=== PATIENT | male | born 1975 | race Caucasian/White ===

== ENCOUNTER → 2023-10-08 06:19 | Day surgery (SDC) | payer BC, SELFPAY | LOC: GI 06:19 | PROVIDERS: ATTENDING PHYSICIAN Internal Medicine Gastroenterology | DX: Z12.11 Encounter for screening for malignant neoplasm of colon (principal); D49.0 Neoplasm of unspecified behavior of digestive system; D12.5 Benign neoplasm of sigmoid colon; K57.30 Diverticulosis of large intestine without perforation or abscess without bleeding; K64.8 Other hemorrhoids; K62.89 Other specified diseases of anus and rectum | CPT/HCPCS: 45385; 45380; 88305 ==

== ENCOUNTER 2023-11-11 06:35 | Day surgery (SDC) | payer BC, SELFPAY ==
[2023-11-11 13:23] VITALS: BMI 31.4
[2023-11-11 13:25] VITALS: BMI 31.4
[2023-11-11 13:36] VITALS: BP 129/85
[2023-11-11 16:12] VITALS: BP 116/74
[2023-11-11 16:15] VITALS: BP 125/76
[2023-11-11 16:30] VITALS: BP 118/82
== END 2023-11-11 16:45 | disposition home or self-care (01) ==
LOC: SDS 06:35
PROVIDERS: ATTENDING PHYSICIAN Internal Medicine Gastroenterology
DX: C18.7 Malignant neoplasm of sigmoid colon (principal); K64.8 Other hemorrhoids
CPT/HCPCS: 45331; 45335; 88305; 88342

== ENCOUNTER 2023-11-27 06:17 | Day surgery (SDC) | payer BC, SELFPAY ==
[2023-11-27 11:33] VITALS: BMI 31.5
[2023-11-27 11:34] VITALS: BP 138/87
[2023-11-27 14:16] VITALS: BP 115/79
[2023-11-27 14:30] VITALS: BP 122/84
[2023-11-27 14:45] VITALS: BP 117/82
== END 2023-11-27 14:57 | disposition home or self-care (01) ==
LOC: SDS 06:17
PROVIDERS: ATTENDING PHYSICIAN Internal Medicine Gastroenterology
DX: C18.7 Malignant neoplasm of sigmoid colon (principal); D12.5 Benign neoplasm of sigmoid colon; K64.0 First degree hemorrhoids
CPT/HCPCS: 45349; 88305

== ENCOUNTER → 2023-11-28 13:42 | Outpatient (REF) | payer BC, SELFPAY | LOC: RAD 13:42 | PROVIDERS: ATTENDING PHYSICIAN Surgery; FAMILY PHYSICIAN Family Medicine | DX: C18.7 Malignant neoplasm of sigmoid colon (principal) | CPT/HCPCS: 71260; 74177; Q9967 ==

== ENCOUNTER → 2023-12-01 08:13 | Outpatient (REF) | payer BC, SELFPAY ==
[2023-12-01 10:26] LABS: ALT (SGPT) 24 U/L (0-50); AST (SGOT) 22 U/L (17-59); Albumin 4.8 g/dl (3.5-5.0); Alkaline Phosphatase 77 U/L (38-126); Blood Urea Nitrogen 17 mg/dl (9-20); Carbon Dioxide 27 mmol/L (22-30); Chloride 104 mmol/L (98-107); Glucose 88 mg/dl (70-99); Potassium 4.3 mmol/L (3.5-5.1); Sodium 140 mmol/L (135-145); Total Protein 7.5 g/dl (6.3-8.2); eGFR > 60.00
[2023-12-01 10:48] LABS: CEA 1.18 ng/ml
[2023-12-01 13:19] LABS: % Basophils 0.7 % (0-2); % Eosinophils 1.4 % (0-6); % Immature Granulocytes 0.5 % (0-0.5); % Neutrophils 68.4 % (42.2-75.2); Absolute Basophils 0.1 10^3/uL (0-0.2); Absolute Eosinophils 0.1 10^3/uL (0-0.7); Absolute Lymphocytes 1.8 10^3/uL (1.2-3.4); Absolute Monocytes 0.7 10^3/uL (0.1-0.6); Absolute Neutrophils 5.7 10^3/uL (1.4-6.5); Hematocrit 44.3 % (39.0-52.0); Hemoglobin 15.8 g/dL (13.0-18.0); Mean Corp Hgb Conc. 35.7 g/dL (33.0-37.0); Mean Corpuscular Hgb 32.6 pg (27.0-31.0); Mean Corpuscular Volume 91.3 fL (80.0-94.0); Mean Platelet Volume 10.5 fL (7.4-10.4); Nucleated Red Blood Cells % 0 % (-); Platelet Count 255 10^3/uL (130-400); Red Blood Cell Count 4.85 10^6/uL (4.70-6.10); Red Cell Dist. Width 12.1 % (11.5-14.5); White Blood Cell Count 8.4 10^3/uL (4.8-10.8)
== END ==
LOC: REG 08:13
PROVIDERS: ATTENDING PHYSICIAN Surgery; FAMILY PHYSICIAN Family Medicine
DX: C18.7 Malignant neoplasm of sigmoid colon (principal)
CPT/HCPCS: 36415; 80053; 82378; 85025

== ENCOUNTER 2023-12-04 06:09 | Inpatient (IN) | payer BC, SELFPAY ==
[2023-12-02 14:05] LABS: INR 1.14; PT 14.4 Sec (11.4-14.6)
[2023-12-02 14:06] LABS: APTT 30.1 Sec (23.4-35.0)
[2023-12-02 14:07] VITALS: BMI 32.0
[2023-12-04] VITALS (13 sets, daily range): BP systolic 10–135; BP diastolic 54–84; BMI 32.0
[2023-12-04] MEDS: NEURONTIN 600 MG PO (06:30)
[2023-12-04] MEDS: ENTEREG 12 MG PO (06:30)
[2023-12-04] MEDS: TYLENOL 1000 MG PO (06:30)
[2023-12-04] MEDS: HEPARIN 5000 UNITS SC (06:31)
[2023-12-04] MEDS: NORMOSOL-R 1000 IV ×2 (06:33→14:37)
--- NOTE | 2023-12-04 13:09 | W.IMMPOSTOP ---
Addendum entered and electronically signed by Orlando Villarreal MD 12/04/23 19:12:
Also of note: Tumor location was sigmoid.
Addendum entered and electronically signed by Orlando Villarreal MD 12/04/23 13:30:
Patient's updated in waiting room.
Original Note:
Surgical Immed Post Op Note
-
Primary Surgeon: Chaim Villarreal MD
Assisting Surgeon: DAI Garcia
Pre-op Diagnosis: sigmoid cancer
Post-op Diagnosis: same
Procedure Performed: 1) robotic low-anterior resection (LAR) 2) flexible sigmoidoscopy
Anesthesia Type: general plus local
Specimen / Cultures: 1) sigmoid colon 2) upper rectum 3) distal anastomotic donut
Estimated Blood Loss: 150 cc
Complications: no immediate
Operative Findings: 1) distal sigmoid EMR site noted as well as tattoos upstream and downstream 2) no obvious peritoneal or hepatic metastases
#19 Luis in pelvis.
Vera, stents, ureteral ICG by Dr Alicia.
Will send to med surg.
Colon Resection
Colon Resection
Operation performed with curative intent: Yes
Sigmoid Resection: Inferior Mesenteric
[2023-12-04 13:55] LABS: % Basophils 0.4 % (0-2); % Immature Granulocytes 0.3 % (0-0.5); % Lymphocytes 5.8 % (20.5-51.1); % Neutrophils 91.5 % (42.2-75.2); Absolute Basophils 0.1 10^3/uL (0-0.2); Absolute Lymphocytes 0.9 10^3/uL (1.2-3.4); Absolute Monocytes 0.3 10^3/uL (0.1-0.6); Absolute Neutrophils 13.5 10^3/uL (1.4-6.5); Hematocrit 40.8 % (39.0-52.0); Hemoglobin 15.1 g/dL (13.0-18.0); Mean Corpuscular Hgb 32.8 pg (27.0-31.0); Mean Corpuscular Volume 88.7 fL (80.0-94.0); Mean Platelet Volume 10.7 fL (7.4-10.4); Nucleated Red Blood Cells % 0 % (-); Platelet Count 273 10^3/uL (130-400); White Blood Cell Count 14.8 10^3/uL (4.8-10.8)
[2023-12-04] MEDS: TORADOL 15 MG IV ×2 (14:10→20:41)
[2023-12-04] MEDS: DILAUDID 0.5 MG IV (14:22)
[2023-12-04 15:37] LABS: ALT (SGPT) 36 U/L (0-50); AST (SGOT) 37 U/L (17-59); Alkaline Phosphatase 60 U/L (38-126); Blood Urea Nitrogen 14 mg/dl (9-20); Calcium 9.1 mg/dl (8.4-10.2); Carbon Dioxide 24 mmol/L (22-30); Estimated Creatinine Clearance > 125 ml/min; Glucose 137 mg/dl (70-99); Magnesium 2.1 mg/dl (1.6-2.3); Total Bilirubin 2.1 mg/dl (0.2-1.3); Total Protein 6.4 g/dl (6.3-8.2); eGFR > 60.00
[2023-12-04 16:00] LABS: Chloride 105 mmol/L (98-107); Potassium 4.2 mmol/L (3.5-5.1); Sodium 136 mmol/L (135-145)
[2023-12-04] MEDS: TYLENOL 650 MG PO (18:04)
[2023-12-04] MEDS: FLUSH (NSS) 2 FLUSH IV (20:44)
[2023-12-04] MEDS: TYLENOL PO (21:40)
[2023-12-05] MEDS: DILAUDID 0.5 MG IV ×5 (01:10→22:24)
[2023-12-05] MEDS: TYLENOL 650 MG PO ×6 (01:11→20:21)
[2023-12-05] MEDS: FLUSH (NSS) 2 FLUSH IV (01:11)
[2023-12-05] MEDS: NORMOSOL-R 1000 IV ×2 (01:17→15:06)
[2023-12-05] MEDS: TORADOL 15 MG IV ×4 (01:57→20:21)
[2023-12-05 02:59] VITALS: BP 116/68
[2023-12-05 06:46] LABS: % Basophils 0.3 % (0-2); % Immature Granulocytes 0.4 % (0-0.5); % Lymphocytes 12.8 % (20.5-51.1); % Monocytes 11.5 % (1.7-9.3); Absolute Lymphocytes 1.3 10^3/uL (1.2-3.4); Absolute Monocytes 1.2 10^3/uL (0.1-0.6); Absolute Neutrophils 7.9 10^3/uL (1.4-6.5); Hematocrit 35.4 % (39.0-52.0); Hemoglobin 12.8 g/dL (13.0-18.0); Mean Corp Hgb Conc. 36.2 g/dL (33.0-37.0); Mean Corpuscular Hgb 31.6 pg (27.0-31.0); Mean Corpuscular Volume 87.4 fL (80.0-94.0); Mean Platelet Volume 9.9 fL (7.4-10.4); Nucleated Red Blood Cells % 0 % (-); Platelet Count 247 10^3/uL (130-400); Red Blood Cell Count 4.05 10^6/uL (4.70-6.10); Red Cell Dist. Width 12.1 % (11.5-14.5); White Blood Cell Count 10.5 10^3/uL (4.8-10.8)
[2023-12-05 07:10] LABS: Blood Urea Nitrogen 14 mg/dl (9-20); Carbon Dioxide 26 mmol/L (22-30); Chloride 103 mmol/L (98-107); Estimated Creatinine Clearance > 125 ml/min; Glucose 96 mg/dl (70-99); Magnesium 2.1 mg/dl (1.6-2.3); Potassium 4.1 mmol/L (3.5-5.1); Sodium 135 mmol/L (135-145); eGFR > 60.00
[2023-12-05 07:26] VITALS: BP 117/76
[2023-12-05] MEDS: ENTEREG 12 MG PO ×2 (08:57→20:21)
[2023-12-05] MEDS: PROTONIX 40 MG PO (08:57)
--- NOTE | 2023-12-05 12:10 | CM ---
Initial assessment completed with patient who lives with his and 2 daughters (13-16 y/o) in a 2 story home plus basement with 1 step to enter and B/B on with 1/2 bath on . No DME or in-home services. [employer] was independent, drove and
worked. No history of Psychiatric hospitalizations. [facility]acy is [facility] in [place] and PCP is Dr. Mustapha Fox. Ureteral caths removed. Anticipate no needs at discharge. Patient in agreement.
--- NOTE | 2023-12-05 12:26 | W.PN.CRS1 ---
Today's Communication / Plan
-
clears
lovenox
d/c vidal
Assessment/Plan
-
POD#1 1) robotic low-anterior resection (LAR) 2) flexible sigmoidoscopy
-Vitals and labs normal.
-Advance diet to clears.
-Stent #2 removed at bedside. D/C vidal.
-OOB as tolerated.
-Lovenox for DVT prophylaxis. TEDS/SCDS in place.
-Continue ESTRADA drain until discharge.
-OR pathology pending
-Tylenol/Toradol for pain, Dilaudid PRN.
Subjective Data
Procedure
1) robotic low-anterior resection (LAR) 2) flexible sigmoidoscopy
Subjective Data
Date of Service: December 05, 2023
Patient states he is feeling well. He has no nausea or vomiting. His pain is controlled. His only complaint is the vidal.
Objective Data
-
Vital Signs
Temp Pulse Resp BP Pulse Ox
98.6 F 63 19 117/76 98
12/05/23 07:26 12/05/23 07:26 12/05/23 07:26 12/05/23 07:26 12/05/23 07:26
Intake & Output
12/04/23 12/05/23 12/06/23
06:59 06:59 06:59
Intake Total 1860 / 1860
Output Total 1200 / 1200
Balance 660 / 660
Intake:
Oral fluids 360 / 360
IV fluids (Total) 1500 / 1500
Normosal 300 / 300
Output:
Drain Output (Total) 120 / 120
Right Abdomen Zana-Farias 120 / 120
Urine, Vidal 1080 / 1080
Lab Results
12/05/23 05:39
12/05/23 05:39
Physical Exam
-
General: No Acute Distress and AOx3
Abdomen: Soft, Non Distended and Non Tender
Skin: Warm and Dry
Incision: Clear, Dry, Intact
[2023-12-05 15:32] VITALS: BP 121/75
[2023-12-05] MEDS: LOVENOX 40 MG SC (17:55)
[2023-12-05 23:00] VITALS: BP 126/75
[2023-12-06] MEDS: TYLENOL 650 MG PO ×6 (00:28→23:26)
[2023-12-06] MEDS: TORADOL 15 MG IV ×4 (01:49→20:10)
[2023-12-06 06:00] VITALS: BMI 32.1
[2023-12-06] MEDS: DILAUDID 0.25 MG IV (06:13)
[2023-12-06 06:40] LABS: % Basophils 0.3 % (0-2); % Eosinophils 0.5 % (0-6); % Immature Granulocytes 0.3 % (0-0.5); % Monocytes 10.3 % (1.7-9.3); % Neutrophils 73.6 % (42.2-75.2); Absolute Eosinophils 0.1 10^3/uL (0-0.7); Absolute Lymphocytes 1.5 10^3/uL (1.2-3.4); Absolute Neutrophils 7.1 10^3/uL (1.4-6.5); Hematocrit 37.9 % (39.0-52.0); Hemoglobin 13.4 g/dL (13.0-18.0); Mean Corp Hgb Conc. 35.4 g/dL (33.0-37.0); Mean Corpuscular Hgb 32.3 pg (27.0-31.0); Mean Corpuscular Volume 91.3 fL (80.0-94.0); Mean Platelet Volume 9.7 fL (7.4-10.4); Nucleated Red Blood Cells % 0 % (-); Platelet Count 190 10^3/uL (130-400); Red Blood Cell Count 4.15 10^6/uL (4.70-6.10); Red Cell Dist. Width 12.1 % (11.5-14.5); White Blood Cell Count 9.6 10^3/uL (4.8-10.8)
[2023-12-06 07:03] LABS: Blood Urea Nitrogen 16 mg/dl (9-20); Calcium 9.4 mg/dl (8.4-10.2); Carbon Dioxide 26 mmol/L (22-30); Chloride 103 mmol/L (98-107); Estimated Creatinine Clearance 97 ml/min; Glucose 87 mg/dl (70-99); Potassium 4.1 mmol/L (3.5-5.1); Sodium 137 mmol/L (135-145); eGFR > 60.00
[2023-12-06] MEDS: PROTONIX 40 MG PO (09:52)
[2023-12-06] MEDS: ENTEREG 12 MG PO ×2 (09:52→20:09)
[2023-12-06] MEDS: DILAUDID 0.5 MG IV (09:53)
--- NOTE | 2023-12-06 10:28 | W.PN.CRS1 ---
Today's Communication / Plan
-
full liquids
continue lovenox
Assessment/Plan
-
POD#2 1) robotic low-anterior resection (LAR) 2) flexible sigmoidoscopy
-Vitals and labs normal.
-Advance diet to fulls.
-Vera out and he is voiding.
-OOB as tolerated.
-Lovenox for DVT prophylaxis. TEDS/SCDS in place.
-Continue ESTRADA drain until discharge.
-OR pathology pending
-Tylenol/Toradol for pain, Dilaudid PRN.
Subjective Data
Procedure
1) robotic low-anterior resection (LAR) 2) flexible sigmoidoscopy
Subjective Data
Date of Service: December 06, 2023
He states his abdomen felt more tight overnight. Some cramps, no nausea but no real appetite. He is passing some flatus, no bowel movement. He is ambulating.
Objective Data
-
Vital Signs
Temp Pulse Resp BP Pulse Ox
98.5 F 63 16 126/75 98
12/06/23 07:53 12/06/23 07:53 12/06/23 07:53 12/05/23 23:00 12/06/23 07:53
Intake & Output
12/05/23 12/06/23 12/07/23
06:59 06:59 06:59
Intake Total 1860 / 1860 3200 / 3200
Output Total 1200 / 1200 2705 / 2705
Balance 660 / 660 495 / 495
Intake:
Oral fluids 360 / 360 1560 / 1560
IV fluids (Total) 1500 / 1500 1640 / 1640
Normosal 300 / 300
Output:
Drain Output (Total) 120 / 120 140 / 140
Right Abdomen Zana-Farias 120 / 120 140 / 140
Urine, Vera 1080 / 1080 1265 / 1265
Urine, Voided 1300 / 1300
Lab Results
12/06/23 05:40
12/06/23 05:40
Physical Exam
-
General: No Acute Distress
Abdomen: Soft, Non Distended, Non Tender and Other (ESTRADA output is ss)
Extremities: No Calf Tenderness
Incision: Clear, Dry, Intact
[2023-12-06] MEDS: LOVENOX 40 MG SC (17:41)
[2023-12-06] MEDS: TYLENOL PO (22:14)
[2023-12-06 23:37] VITALS: BP 135/79
[2023-12-07] MEDS: TORADOL 15 MG IV ×2 (02:31→07:32)
[2023-12-07] MEDS: TYLENOL PO (04:33)
[2023-12-07 06:00] VITALS: BMI 31.6
[2023-12-07] MEDS: PROTONIX 40 MG PO (07:32)
[2023-12-07] MEDS: ENTEREG 12 MG PO (07:32)
[2023-12-07] MEDS: TYLENOL 650 MG PO ×2 (07:32→11:43)
[2023-12-07 07:35] VITALS: BP 120/76
--- NOTE | 2023-12-07 08:16 | W.PN.CRS1 ---
Today's Communication / Plan
-
Low residue diet.
Possible discharge later today. The drain will be removed.
I reviewed diet, medications, activity, wound care and follow-up. His was present, all questions answered.
Final pathology is pending.
Assessment/Plan
-
POD#3 1) robotic low-anterior resection (LAR) 2) flexible sigmoidoscopy
-Vitals and labs normal.
-Advance diet to low residue diet.
-Lovenox for DVT prophylaxis. TEDS/SCDS in place.
-Continue ESTRADA drain until discharge.
-OR pathology pending
-Tylenol/Toradol for pain, Dilaudid or oxycodone PRN.
Subjective Data
Procedure
1) robotic low-anterior resection (LAR) 2) flexible sigmoidoscopy
Subjective Data
Date of Service: December 07, 2023
He feels much better today. He is passing flatus and stool (loose, as expected). He has minimal abdominal discomfort and denies any nausea. He is tolerating full liquids.
Objective Data
-
Vital Signs
Temp Pulse Resp BP Pulse Ox
98.1 F 60 16 120/76 98
12/07/23 07:35 12/07/23 07:35 12/07/23 07:35 12/07/23 07:35 12/07/23 07:35
Intake & Output
12/06/23 12/07/23 12/08/23
06:59 06:59 06:59
Intake Total 3200 / 3200 920 / 920
Output Total 2705 / 2705 645 / 645
Balance 495 / 495 275 / 275
Intake:
Oral fluids 1560 / 1560 920 / 920
IV fluids (Total) 1640 / 1640
Output:
Drain Output (Total) 140 / 140 170 / 170
Right Abdomen Zana-Farias 140 / 140 170 / 170
Urine, Vera 1265 / 1265
Urine, Voided 1300 / 1300 475 / 475
Other:
Number of approximated MODERATE 2
amounts of urine
Lab Results
12/06/23 05:40
12/06/23 05:40
Physical Exam
-
General: No Acute Distress
Abdomen: Soft, Non Distended, Non Tender and Other (ESTRADA output is serosanguineous)
Extremities: No Edema and No Calf Tenderness
Incision: Clear, Dry, Intact
--- NOTE | 2023-12-07 09:57 | W.DCSUMMARY ---
Discharge Summary
Discharge Data
Date of Admission: 12/04/23
Date of Discharge: 12/07/23
-
Pending Results: No
Hospital Course
Mr Colunga is a 48 yo male who presented for surgical management of sigmoid cancer and underwent robotic low anterior resection with flexible sigmoidoscopy. He tolerated the procedure well without complication. He was able to void without difficulty
after removal of perioperative vidal catheter. Diet was advanced post operatively and well tolerated. Pain was well managed. ESTRADA drain placed intraoperatively was removed prior to discharge. Final pathology from the OR is still pending. There is
outpatient follow up planned in the coming weeks.
Discharge Plan
-
Patient Disposition: Home (Routine Discharge)
Discharge Diagnosis/Procedures: Robotic low anterior resection for sigmoid cancer
Condition: Good
Diet: Low Fiber
Activity: No strenuous activity
Additional Activity: Do not lift over 10 lbs (gallon of milk)
Driving Restrictions: Wait until comfortable twisting/off narcotics
Bathing Restrictions: OK to Shower
Wound Care: Wash your incisions gently with soap and water. The glue will flake off on its own in 2-3 weeks, avoid picking or scrubbing it off.
cover the area where your drain was with dry gauze or a large bandage until drainage is no longer noted. change daily with showering.
Activity Restrictions/Additional Instructions:
Call your surgeon if you have worsening pain, nausea with vomiting or a fever >100.5
Instructions: Low Fiber Diet
Referrals:
Orlando Villarreal MD [Active] - in two to four weeks
Mustapha Fox MD [Family Provider] -
Prescriptions:
New
acetaminophen [acetaminophen] 325 mg tablet
650 mg PO Q4HPRN PRN (Reason: mild pain) Qty: 1 0RF
oxycodone 5 mg tablet
5 mg PO Q4HPRN PRN (Reason: breakthrough/severe pain) Qty: 20 0RF
Continued
multivitamin Tablet
1 tab PO DAILY
naproxen sodium [Aleve] 220 mg Tablet
220 mg PO Q8H PRN (Reason: pain)
Discontinued
Sutab 1.479-0.188- 0.225 gram Tablet
0 tab PO PER PKG DIR
metronidazole [Flagyl] 500 mg Tablet
500 mg PO TID
neomycin 500 mg Tablet
1 g PO TID
Discharge Orders:
Discharge Patient (As Directed); Ordered 12/07/23
Ordered By: Ashlee Weston
Discharge Date and Time
Print Language: UGANDAN
== END 2023-12-07 12:04 | disposition home or self-care (01) | DRG 330 ==
LOC: 2 SOUTH 06:09
PROVIDERS: Physician Assistant; Specialist; ADMITTING PHYSICIAN Surgery; FAMILY PHYSICIAN Family Medicine
PROC: 0T788DZ Dilation of Bilateral Ureters with Intraluminal Device, Via Natural or Artificial Opening Endoscopic (ICD-10-PCS; 2023-12-04)
PROC: 0DBP4ZZ Excision of Rectum, Percutaneous Endoscopic Approach (ICD-10-PCS; 2023-12-04)
PROC: 8E0W4CZ Robotic Assisted Procedure of Trunk Region, Percutaneous Endoscopic Approach (ICD-10-PCS; 2023-12-04)
PROC: 0DTN4ZZ Resection of Sigmoid Colon, Percutaneous Endoscopic Approach (ICD-10-PCS; 2023-12-04)
DX: C18.7 Malignant neoplasm of sigmoid colon (principal); Q43.8 Other specified congenital malformations of intestine; R63.4 Abnormal weight loss; Z68.32 Body mass index [BMI] 32.0-32.9, adult; K64.9 Unspecified hemorrhoids; K62.89 Other specified diseases of anus and rectum; Z86.010 Personal history of colon polyps; Z87.891 Personal history of nicotine dependence
CPT/HCPCS: 88304; 88307; 36415; 80048; 80053; 83735; 85025; 85610; 85730; 86850; 86900; 86901; 93005; J1335

== ENCOUNTER 2024-12-14 06:27 | Day surgery (SDC) | payer BC, SELFPAY | END 2024-12-14 12:30 | disposition home or self-care (01) | LOC: GI 06:27 | PROVIDERS: ATTENDING PHYSICIAN Internal Medicine Gastroenterology | DX: Z12.11 Encounter for screening for malignant neoplasm of colon (principal); K57.30 Diverticulosis of large intestine without perforation or abscess without bleeding; D12.0 Benign neoplasm of cecum; D12.5 Benign neoplasm of sigmoid colon; K64.8 Other hemorrhoids; Z85.048 Personal history of other malignant neoplasm of rectum, rectosigmoid junction, and anus; Z98.0 Intestinal bypass and anastomosis status | CPT/HCPCS: 45385; 88305 ==